=== PATIENT | female | born 1980 | race Caucasian/White ===

== ENCOUNTER → 2020-05-31 11:00 | Outpatient (CLI) | payer OTHER, SELFPAY ==
--- NOTE | ~2020-05-31 | US_ITS ---
EXAMINATION: US pelvic complete EXAM DATE: 05/31/2020 11:20 INDICATION: Thyroid uterus. TECHNIQUE: Pelvic transabdominal and transvaginal sonogram was performed. There are multiple graysca le and Doppler images available for interpretation. Comparison is made to prior examination from 01/28. FINDINGS: Uterus measures 16.0 x 8.4 x 11.0 cm, with fibroids, measuring up to 8 cm in size. Endomet rial stripe measures 9 mm, within normal limits. There is no free pelvic fluid. Right adnexa: The ovary is not identified. There is no adnexal mass. Left adnexa: The ovary measures 3.0 x 2.0 x 3.3 cm and is morphologically normal. Ovarian vascular fl ow confirmed. IMPRESSION: 1. Large fibroids, unchanged. Reviewed, dictated and finalized at location A. [facility]
== END ==
PROVIDERS: PCP Internal Medicine; Visit Provider Nurse Practitioner
DX: D25.9 Leiomyoma of uterus, unspecified (principal)
CPT/HCPCS: 76856

== ENCOUNTER 2021-09-26 10:03 | Outpatient (CLI) | payer OTHER, SELFPAY ==
[2021-09-26 11:20] LABS: Hematocrit 34.5 % (37.0-47.0); Hemoglobin 10.9 g/dL (12.0-15.0)
== END 2021-09-26 10:04 | disposition home or self-care (01) ==
LOC: ANHSURGERY 10:07
PROVIDERS: PCP Internal Medicine; Visit Provider Obstetrics & Gynecology Gynecology
DX: D21.9 Benign neoplasm of connective and other soft tissue, unspecified (principal); Z01.818 Encounter for other preprocedural examination
CPT/HCPCS: 36415; 85014; 85018; 86850; 86900; 86901

== ENCOUNTER 2021-10-04 14:02 | Observation (INO) | payer OTHER, SELFPAY ==
--- NOTE | 2021-07-26 15:38 | PC.NURSE ---
PT STATES MEMBERS OF IMMEDIATE HOUSEHOLD CURRENTLY ARE COVD +. PT ADVISED TO CALL SURGEON'S OFFICE TO RESCHEDULE PROCEDURE.
[2021-09-22 11:11] VITALS: BMI 36.0
--- NOTE | 2021-09-22 11:23 | PC.NURSE ---
Report to the Outpatient Waiting Room, entrance under the green pavilion located off [facility], at time 6:00 on date 10/03/21. OR Time: 7:30. - You and your visitor will be asked a series of questions to screen for COVID 19 for your protection. - A mask is required within the hospital. One visitor will be allowed to accompany the patient into the hospital. Patients visitor will be instructed to remain with patient at all times or leave the building. We will allow the visitor to come back to the postoperative area when patient is ready. Preoperative COVID Testing Requirements: No COVID Test needed if: (proof is required; if not received patient will have Rapid Test prior to entry) - Patient has received COVID Vaccine at least 14 days prior to procedure date or - Patient has positive COVID test result within last 90 days of surgery date. COVID Test needed if above criteria is not met Patients may have clear liquids (water, carbonated beverages, clear teas, apple juice) until 3 hours prior to surgery (4:30) with a maximum of 20 ounces. - No food from midnight until time of surgery Take the following medications with a SIP of water the morning of surgery: CLONAZEPAM (IF NEEDED) Medications to discontinue per physician: VITAMINS/SUPPLEMENTS Date to take last dose: 09/29/21 Please no make-up, nail occitan, hairspray, perfume, deodorant, or body powder the day of surgery. No jewelry (including any body piercings) or valuables the day of surgery, leave them at home. Please take a shower or bath the night before, or the morning of, surgery with an antibacterial soap. Wear comfortable, loose fitting clothing. - Jewelry must be removed prior to entering the operating room. Rings and piercings that are not removed may be cut off. - The hospital will not accept responsibility for valuables. - Please leave all valuables, including medications, at home the day of surgery. If you are going home after surgery, a licensed jinriksha driver must drive you home. - NO public transportation without another adult. - We recommend that an adult stay with you for 24 hours following discharge. - We also recommend that you do not drive, make important decision, drink alcoholic beverages, or take any drugs that were not prescribed by your health care provider for at least 24 hours after your discharge time. Follow any additional instructions given to you from your surgeon. Telephone instructions given to DEMETRI RODRIGUEZ and asked if any additional questions and then verbalized understanding. Patient advised to call surgeon office or pre surgery nurse liaison [phone] if any additional questions.
--- NOTE | 2021-10-01 12:59 | P.PNAN_ITS ---
Anes - Initial Pre Proc Eval Procedure: Operation Date: 10/03/21 07:30 Proposed Procedures p Total Abdominal Hysterectomy with Bilateral Salpingectomy - Ermelinda Staton MD Date/Time: 10/01/21 12:59 Surgeon: Ermelinda Staton MD Pre Op Diagnosis: fibroids, menorrhagia, enlarged uterus Patient Data Age: 41 Gender: F Height: 1.57 m Weight: 89.36 kg Allergies Allergy/AdvReac Type Severity Reaction Status Date / Time No Known Allergies Allergy Verified 09/22/21 11:08 Home Medications Medication Instructions Recorded Confirmed Type cholecalciferol (vitamin D3) 50 mcg PO HS 09/22/21 09/22/21 History [Vitamin D3] clonazepam 0.5 mg PO DAILY PRN 09/22/21 09/22/21 History fluoxetine 80 mg PO HS 09/22/21 09/22/21 History Patient hx anesthesia problems: none Family hx anesthesia problems: none Results Review: All pre-operative results and documents have been reviewed as part of the pre-operative evaluation. [facility] Past Medical History Medical History (Updated 10/01/21 @ 13:00 by Jerrell Sahni DO) Anxiety Asthma Depression Fibroid OCD (obsessive compulsive disorder) Social History Social History Smoking packs per day: 1 Smoking cigarettes per day: 20.0 Years smoked: 5 Smoking pack-years: 5.00 Smoking status: Former smoker Tobacco type: cigarettes Smoking end date: 07/16/01 Alcohol intake: current Alcohol use details: A COUPLE/YEAR Substance use: never Substance use type: does not use Living arrangements: with family Spiritual care concerns: No Anes - Eval Final PreProcedure Day of Procedure 10/01/21 12:59 Patient weight: obese Heart: regular rate and rhythm Lungs: clear to auscultation and normal air movement Airway: Mallampati scale class III Neurological: alert and oriented Last oral intake: >/= 8 hours ASA classification: II Emergent: no Anesthetic plan: proceed Anesthesia type and monitoring: general ETT and standard monitoring Results Review: All pre-operative results and documents have been reviewed as part of the pre-operative evaluation. Informed Consent: The patient's anesthetic plan and its attendant risks and benefits were discussed with the patient/family/POA. Questions were solicited and answers provided to the satisfaction of the patient/family/POA.
[2021-10-03] VITALS (17 sets, daily range): BP systolic 98–129; BP diastolic 63–80; PULSE 88–96; RESP 10–20; TEMP 36.2–36.5; O2SAT 97–100
[2021-10-03] MEDS: ACETAMINOPHEN 500 MG TABLET 1000 MG PO (06:45)
[2021-10-03] MEDS: LACTATED RINGERS 1,000 ML 30 ML IV CONT ×2 (06:54→09:32)
[2021-10-03] MEDS: KETOROLAC 15 MG/ML VIAL (*BKC) IV PUSH (06:55)
--- NOTE | 2021-10-03 07:20 | WPDHPUPDATE1 ---
History and Physical Update Update Date/Time: 10/03/21 07:20 History and Physical has been reviewed, including an updated exam of the patient. There are NO changes in the patient's condition. Risks, benefits, and alternatives have been discussed and questions answered. Patient agrees to proceed with procedure.
--- NOTE | 2021-10-03 07:20 | PM.IMHP ---
H&P: HPI History of Present Illness Date/Time: 10/03/21 07:20 The patient is a 41-year-old 2 para 2 being admitted for menorrhagia with enlarged fibroid uterus. Patient had a normal hysteroscopy in 2019 and has been treated with oral contraceptives and Myfembree without success. She continues to feel bloated and continues to have heavy cycles. Patient has elected to proceed with definitive therapy with hysterectomy. Due to the enlarged size of the uterus the plan is to proceed with total abdominal hysterectomy bilateral salpingectomy. Risks of surgery including infection, bleeding, injury to internal organs (bowel, bladder, ureters, ovaries), general anesthesia, and DVT were reviewed. Patient voiced understanding and agrees to proceed. Chief Complaint: Menorrhagia Review of Systems Review of Systems: All systems reviewed & are unremarkable except as noted in HPI and below (History of present illness) [facility] Past Medical History Medical History (Updated 10/03/21 @ 07:26 by Ermelinda Staton MD) Anxiety Asthma Depression Fibroid (normal spontaneous vaginal delivery) X2 OCD (obsessive compulsive disorder) Surgical History Surgical History (Updated 10/03/21 @ 07:25 by Ermelinda Staton MD) H/O LEEP History of mandibular surgery Social History Social History Smoking packs per day: 1 Smoking cigarettes per day: 20.0 Years smoked: 5 Smoking pack-years: 5.00 Smoking status: Former smoker Tobacco type: cigarettes Smoking end date: 07/16/01 Alcohol intake: current Alcohol use details: A COUPLE/YEAR Substance use: never Substance use type: does not use Living arrangements: with family Spiritual care concerns: No Meds Home Medications and Allergies Home Medications Medication Instructions Recorded Confirmed Type cholecalciferol (vitamin D3) 50 mcg PO HS 09/22/21 10/03/21 History [Vitamin D3] clonazepam 0.5 mg PO DAILY PRN 09/22/21 10/03/21 History fluoxetine 80 mg PO HS 09/22/21 10/03/21 History Allergies Allergy/AdvReac Type Severity Reaction Status Date / Time No Known Allergies Allergy Verified 10/03/21 06:39 Vital Signs Vital Signs - 24 hr 10/03/21 06:17 Temperature 97.1 F L Pulse Rate 89 Respiratory Rate 16 Blood Pressure 129/80 Pulse Oximetry 100 Exam Const: General: healthy appearing and alert Orientation/consciousness: patient oriented x3 Resp: Effort & Inspection: normal respiratory effort Auscultation: clear to auscultation bilaterally Cardio: Rate: regular rate Rhythm: regular rhythm GI: GI Palp: Yes Soft to palpation, No Tenderness to palpation present (GI) and No Palpable mass present : External Female Exam: normal external appearance Speculum Exam - Vagina: normal appearance of the vagina and normal vaginal discharge Speculum Exam - Cervix: normal appearance of the cervix Bimanual exam- vagina & uterus: consistency normal and enlarged (Eighteen week size) Bimanual Exam- Adnexa, other: normal adnexae and No adnexal tenderness Neuro: General: patient oriented x3 Assessment and Plan Assessment and plan (1) Menorrhagia: Code(s): N92.0 - Excessive and frequent menstruation with regular cycle Status: Acute Assessment and Plan: Plan is to proceed with total abdominal hysterectomy bilateral salpingectomy (2) Fibroid: Code(s): D21.9 - Benign neoplasm of connective and other soft tissue, unspecified Status: Inactive
[2021-10-03] MEDS: ceFAZolin 2 GM/D5W 50 ML 2 GM/50 ML BAG IVPB (07:30)
--- NOTE | 2021-10-03 09:23 | W.PM.PROC2 ---
Procedure Note - Detailed Date of Procedure 10/03/21 Pre-op Diagnosis fibroids, menorrhagia Post-op Diagnosis Same Procedure Performed Total abdominal hysterectomy right salpingectomy partial left salpingectomy Surgeon Ermelinda Staton MD Anesthesia General Findings Enlarged uterus with fibroids to the umbilicus, normal-appearing ovaries, the left tube is adherent to the pelvic sidewall, right tube appears normal Description of Procedure The patient was taken to the operating room and placed under anesthesia in the dorsal supine position. She was prepped and draped in the usual sterile fashion. Abdominal exam was performed the fundus is noted at umbilicus and noted to be quite wide. Decision was made for a vertical skin incision which was made with a scalpel. The incision was carried down to the fascia which was nicked and extended superiorly and inferiorly with Murrell scissors. Bleeding vessels in the subcutaneous tissue are cauterized with Bovie. The fascial edges were grasped with Ochsner was and peritoneum is dissected off laterally. The peritoneum was then tented and entered with Metzenbaum scissors. The incision was extended with blunt traction. The pelvis is inspected with the above-stated findings. The bowel was packed away using moist laparotomy sponges and the bowel for is placed. The fundus is grasped at the cornua with large Peons. the round ligaments are doubly ligated with 0 Vicryl. The ligaments were then transected and the anterior leaf of the broad ligament incised meeting in the midline over the bladder flap. Bladder flap was dissected off using blunt dissection with a moist sponge stick. The utero-ovarian ligaments are isolated and a window created in the posterior leaf of the broad ligament. The left side is doubly clamped transected and suture ligated with 0 Vicryl. The tube was scarred down and not able to be pulled into the pedicle. The right side tube is grasped with [place] and pulled towards the uterus. The utero-ovarian ligament is then doubly clamped, transected, and suture ligated with 0 Vicryl. The uterine vessels are doubly clamped, transected, and suture ligated with 0 Vicryl. The cardinal and uterosacral ligaments are then serially clamped, transected, and suture ligated with 0 Vicryl. The uterosacral ligaments were tagged for future use. The vaginal cuff was entered on the right. The Allis clamps are used to grasp the anterior and posterior cuff. The specimen was amputated using Oliver scissors. The cuff is grasped with Allis clamps as the specimen was amputated. The vaginal cuff was then closed using 0 Vicryl in a running locked fashion tying the angles to the ipsilateral uterosacral ligaments. The posterior peritoneum is noted to be bleeding and is additionally ran with 0 Vicryl in a running lock stitch. Additional [id number] suture is required under the bladder flap at the cuff. The pelvis is irrigated and noted to be hemostatic. The left tube was grasped with a [place] and noted to be very adherent to large vessels and the pelvic sidewall. The distal 3rd is grasped and crossclamped with a minimally curved Z-clamp. The fimbriated end is excised and the pedicle tied off using 0 Vicryl. Good hemostasis is noted. The pelvis was again irrigated and pedicles are noted to be dry and the cuff was noted to be dry. Instruments and sponges were then removed. The fascia was closed using 0 PDS in a running fashion. Subcutaneous tissues are irrigated noted to be hemostatic. Skin is closed using absorbable mary with glue placed over the incision. Sponge, needle, and instrument counts are correct per the OR staff. Estimated Blood Loss 525 Drains Yes (Hess catheter) Packing No Pathology Yes (Uterus, right tube, partial left tube) Complications No immediate complications Condition Stable Disposition PACU
--- NOTE | 2021-10-03 09:31 | PM.DS ---
DS: Admitting Diagnosis Discharge Date 10/05/21 Admitting Diagnosis Fibroids with menorrhagia DS: Discharge Diagnosis Discharge Diagnosis (1) Menorrhagia: Code(s): N92.0 - Excessive and frequent menstruation with regular cycle Status: Acute (2) Fibroid: Code(s): D21.9 - Benign neoplasm of connective and other soft tissue, unspecified Status: Acute DS: Summary Hospital Course Reason for hospitalization: Postoperative care Hospital Course: At the time of discharge, the patient is tolerating a regular diet, voiding, and ambulating without difficulty. Status at Discharge Functional status at discharge: independent ambulation Overall status at discharge: patient is progressing back to baseline Time Spent with Patient Time attestation: Total time spent providing and/or coordinating discharge services: DS: Data Data Completed and Pending Pending studies at discharge: Pending at discharge 10/03/21 08:43 Surgical [PTH] Routine Discharge Plan Discharge Attending physician on discharge: Ermelinda Staton Discharging Clinician: Ermelinda Staton Anticipated Discharge Date/Time: 10/05/21 14:50 Patient Disposition: Home, Self-Care Activity: may shower, may drive after 2 weeks and pelvic rest Diet: regular Wound Care Instructions: incision open to air Stand Alone Forms: General Discharge Instructions Follow-up/Referrals: Ermelinda Staton MD [Physician] - 1 Week Discharge Medications: New hydrocodone-acetaminophen 5-325 mg Tablet 1 tablet PO Q3H PRN (Reason: Pain Rated 5 Or Less) Qty: 30 RF: 0 Continued fluoxetine 40 mg Capsule 80 mg PO HS RF: 0 clonazepam 0.5 mg Tablet 0.5 mg PO DAILY PRN (Reason: Anxiety) RF: 0 cholecalciferol (vitamin D3) [Vitamin D3] 50 mcg (2,000 unit) Capsule 50 mcg PO HS RF: 0 Date of admission: 10/04/21 14:02 Primary Care Provider: SalimaMarquez Admitting Provider: Ermelinda Staton Attending physician on admission: Ermelinda Staton Condition: Stable
--- NOTE | 2021-10-03 09:32 | SUR.OPER ---
EBL: 525cc, URINE:300cc
[2021-10-03] MEDS: fentaNYL CITRATE INJ (*CRX) 100 MCG/2 ML VIAL 25 MCG IV PUSH ×6 (09:40→09:59)
[2021-10-03] MEDS: HYDROmorphone HCL INJ (*CRX) 1 MG/ML SYR 0.5 MG IV PUSH ×2 (10:26→10:32)
[2021-10-03] MEDS: DEXTROSE 5%/LACTATED RINGERS 1,000 ML 125 ML IV CONT ×2 (11:12→18:57)
[2021-10-03] MEDS: FENTANYL 600MCG/NS30MLPCA(*CRX 600 MCG/30 ML PCA.VIAL IV CONT (11:50)
--- NOTE | 2021-10-03 12:12 | PC.NURSE ---
1050-This patient, Cristiana Cotter, was admitted to OB 2nd Floor Room 289-00. Patient/family oriented to hospital policies and general routines including ID bracelet, bed and alarms, visiting hours, pain management, procedures, bathroom and other care routines, personal items, smoking policy, room service/diet, and visiting hours. Information on how to activate the Rapid Response Team has been discussed. Patient/Family are encouraged to report perceived risks to care and to ask questions if they do not understand what they are told or what they should do.
[2021-10-03] MEDS: KETOROLAC 30 MG/ML VIAL (*BKC) IV PUSH ×2 (13:24→19:06)
--- NOTE | 2021-10-03 17:49 | PC.NURSE ---
BRIQUETTER OPERATOR pump cleared this shift; total amount used was 70 mcg.
[2021-10-03] MEDS: FLUoxetine HCL 20 MG CAPSULE 80 MG PO (22:06)
[2021-10-04 01:00] VITALS: RESP 18; O2SAT 99
[2021-10-04 03:00] VITALS: RESP 18; O2SAT 97
[2021-10-04] MEDS: KETOROLAC 30 MG/ML VIAL (*BKC) IV PUSH (03:08)
[2021-10-04] MEDS: HYDROcodone/acetaminophen (*CRX) 10-325 MG TABLET 1 TAB PO ×5 (03:15→21:35)
[2021-10-04 03:30] VITALS: BP 122/84; PULSE 91; RESP 18; TEMP 36.8; O2SAT 97
[2021-10-04 05:26] LABS: Basophils Percent Auto 0.2 % (0.2-1.2); Eosinophils Absolute Auto 0.1 K/mm3 (0-0.3); Eosinophils Percent Auto 0.6 % (0-4.4); Hemoglobin 8.7 g/dL (12.0-15.0); Immature Granulocyte Absolute 0.03 K/mm3 (0.00-0.031); Immature Granulocyte Percent A 0.3 % (0-0.5); Lymphocytes Absolute Auto 1.52 K/mm3 (0.9-3.2); Lymphocytes Percent Auto 16.1 % (18.3-44.2); Mean Corpuscular HGB Conc 32.2 g/dl (32-36); Mean Corpuscular Hemoglobin 25.8 pg (26-34); Mean Corpuscular Volume 80.1 fl (80-100); Mean Platelet Volume 9.9 fl (7.4-10.4); Monocytes Absolute Auto 0.8 K/mm3 (0.1-0.6); Monocytes Percent Auto 8.1 % (2.6-8.5); Neutrophils Absolute Auto 7.1 K/mm3 (1.3-6.7); Neutrophils Percent Auto 74.7 % (45.5-73.1); Platelet Count Result 233 k/mm3 (150-375); Red Blood Count 3.37 M/mm3 (4.2-5.4); Red Cell Distribution Width 14.7 % (11.5-14.5); White Blood Count 9.4 K/mm3 (4.5-10.0)
[2021-10-04 07:30] VITALS: BP 112/67; PULSE 86; RESP 16; TEMP 36.9; O2SAT 97
[2021-10-04] MEDS: SIMETHICONE 80 MG TAB.CHEW PO ×4 (07:42→21:36)
[2021-10-04] MEDS: IBUPROFEN 600 MG TABLET PO ×2 (12:11→21:36)
--- NOTE | 2021-10-04 14:48 | PM.GYNPNOP ---
SERVICE CAPTAIN - A/P Postoperative Procedures: Procedures Operation Date: 10/03/21 07:30 Actual Procedure Side Surgeon p Total Abdominal Hysterectomy with right salpingectomy and partial left salpingectomy Bilateral Ermelinda Staton MD Postoperative day: 1 Postoperative status: doing well Postoperative plan: routine post-op care Time Spent With Patient Time: Total time spent is greater than 50% in coordination of care (as documented) at patient's floor/unit and/or counseling patient: Time with patient: less than 15 minutes SERVICE CAPTAIN- PN:Subj Post-Op Subjective Date/time seen: 10/04/21 14:48 Subjective: patient reports feeling better, pain is well controlled and patient is tolerating oral intake Exam Narrative: inc c/d/i bruising noted SERVICE CAPTAIN - PN: Obj Data Vital Signs Vital Signs: Vital Signs - 24 hr 10/03/21 14:50 10/03/21 16:00 10/03/21 16:50 Temperature 97.4 F L Pulse Rate 90 Respiratory Rate 16 16 16 Blood Pressure 112/80 Pulse Oximetry 99 99 99 10/03/21 19:00 10/03/21 19:48 10/03/21 21:00 Temperature 97.4 F L Pulse Rate 96 Respiratory Rate 18 20 18 Blood Pressure 114/72 Pulse Oximetry 100 99 100 10/03/21 23:00 10/04/21 01:00 10/04/21 03:00 Temperature 97.7 F Pulse Rate 95 Respiratory Rate 18 18 18 Blood Pressure 120/78 Pulse Oximetry 99 99 97 10/04/21 03:30 10/04/21 07:30 Temperature 98.3 F 98.5 F Pulse Rate 91 86 Respiratory Rate 18 16 Blood Pressure 122/84 112/67 Pulse Oximetry 97 97 Intake/Output Intake/Output: Intake & Output 10/01/21 10/02/21 10/03/21 10/04/21 23:59 23:59 23:59 23:59 Intake Total 2555.5 1100 Output Total 1250 2250 Balance 1305.5 -1150 Meds/Results Medications: Active Medications Generic Name Dose Route Start Last Admin Trade Name Freq PRN Reason Stop Dose Admin Hydrocodone Bitart/Acetaminophen 1 tab 10/03/21 10:44 10/04/21 12:11 Hydrocodone/Acetaminophen (*Crx) 10-325 Mg Tablet PO 1 tab Q3H PRN Administration Pain Rated 6 or Greater Hydrocodone Bitart/Acetaminophen 1 tab 10/03/21 10:44 Hydrocodone/Acetaminophen (*Crx) 5-325 Mg Tablet PO Q3H PRN Pain Rated 5 or Less Clonazepam 0.5 mg 10/03/21 10:44 Clonazepam (*Crx) 0.5 Mg Tablet PO DAILY PRN Anxiety Fluoxetine HCl 80 mg 10/03/21 21:00 10/03/21 22:06 Fluoxetine Hcl 20 Mg Capsule PO 80 mg HS VALDEZ Administration Ibuprofen 600 mg 10/03/21 10:44 10/04/21 12:11 Ibuprofen 600 Mg Tablet PO 600 mg Q6H PRN Administration Cramping Ketorolac Tromethamine 30 mg 10/03/21 10:44 10/04/21 03:08 Ketorolac 30 Mg/Ml Vial (*Bkc) IV PUSH 10/08/21 10:43 30 mg Q6H PRN Administration Pain Rated 4-6 Naloxone HCl 0.1 mg 10/03/21 10:44 Naloxone Hcl 0.4 Mg/Ml Vial IV PUSH Q2M PRN Respiratory rate less than 10 Ondansetron HCl 4 mg 10/03/21 10:44 Ondansetron Inj 4 Mg/2 Ml Vial IV PUSH Q6H PRN Nausea Simethicone 80 mg 10/03/21 10:44 10/04/21 12:11 Simethicone 80 Mg Tab.Chew PO 80 mg Q2H PRN Administration Gas Labs CBC & Chem 7: 10/04/21 05:18 Labs: Laboratory Results - last 24 hr 10/04/21 05:18 WBC 9.4 RBC 3.37 L Hgb 8.7 L Hct 27.0 L MCV 80.1 MCH 25.8 L MCHC 32.2 RDW 14.7 H Plt Count 233 MPV 9.9 Immature Gran % (Auto) 0.3 Neut % (Auto) 74.7 H Lymph % (Auto) 16.1 L Elk % (Auto) 8.1 Eos % (Auto) 0.6 Baso % (Auto) 0.2 Lymph # (Auto) 1.52 Elk # (Auto) 0.8 H Eos # (Auto) 0.1 Baso # (Auto) 0.0 Abs Immat Gran (auto) 0.03 Absolute Neuts (auto) 7.1 H Absolute Nucleated RBC 0.0 Nucleated RBC % 0.0
[2021-10-04 20:00] VITALS: BP 97/58; PULSE 88; RESP 18; TEMP 36.2; O2SAT 99
[2021-10-04] MEDS: FLUoxetine HCL 20 MG CAPSULE 80 MG PO (21:35)
[2021-10-05] MEDS: SIMETHICONE 80 MG TAB.CHEW PO ×2 (04:30→07:49)
[2021-10-05] MEDS: HYDROcodone/acetaminophen (*CRX) 10-325 MG TABLET 1 TAB PO ×2 (04:30→07:49)
[2021-10-05] MEDS: IBUPROFEN 600 MG TABLET PO (04:31)
--- NOTE | 2021-10-05 06:35 | P.PNOB_ITS ---
ACCOUNT EXECUTIVE TRAINEE - A/P Postoperative Procedures: Procedures Operation Date: 10/03/21 07:30 Actual Procedure Side Surgeon p Total Abdominal Hysterectomy with right salpingectomy and partial left salpingectomy Bilateral Ermelinda Staton MD Postoperative day: 2 Postoperative status: doing well Postoperative plan: routine post-op care and discharge Time Spent With Patient Time: Total time spent is greater than 50% in coordination of care (as documented) at patient's floor/unit and/or counseling patient: Time with patient: less than 15 minutes ACCOUNT EXECUTIVE TRAINEE- PN:Subj Post-Op Subjective Date/time seen: 10/05/21 06:35 Subjective: patient reports feeling better, patient has no complaints and pain is well controlled Exam Narrative: inc c/d/i abdomen soft, nt ACCOUNT EXECUTIVE TRAINEE - PN: Obj Data Vital Signs Vital Signs: Vital Signs - 24 hr 10/04/21 07:30 10/04/21 20:00 Temperature 98.5 F 97.1 F L Pulse Rate 86 88 Respiratory Rate 16 18 Blood Pressure 112/67 97/58 L Pulse Oximetry 97 99 Intake/Output Intake/Output: Intake & Output 10/02/21 10/03/21 10/04/21 10/05/21 23:59 23:59 23:59 23:59 Intake Total 2555.5 1100 Output Total 1250 2250 Balance 1305.5 -1150 Meds/Results Medications: Active Medications Generic Name Dose Route Start Last Admin Trade Name Freq PRN Reason Stop Dose Admin Hydrocodone Bitart/Acetaminophen 1 tab 10/03/21 10:44 10/05/21 04:30 Hydrocodone/Acetaminophen (*Crx) 10-325 Mg Tablet PO 1 tab Q3H PRN Administration Pain Rated 6 or Greater Hydrocodone Bitart/Acetaminophen 1 tab 10/03/21 10:44 Hydrocodone/Acetaminophen (*Crx) 5-325 Mg Tablet PO Q3H PRN Pain Rated 5 or Less Clonazepam 0.5 mg 10/03/21 10:44 Clonazepam (*Crx) 0.5 Mg Tablet PO DAILY PRN Anxiety Fluoxetine HCl 80 mg 10/03/21 21:00 10/04/21 21:35 Fluoxetine Hcl 20 Mg Capsule PO 80 mg HS VALDEZ Administration Ibuprofen 600 mg 10/03/21 10:44 10/05/21 04:31 Ibuprofen 600 Mg Tablet PO 600 mg Q6H PRN Administration Cramping Ketorolac Tromethamine 30 mg 10/03/21 10:44 10/04/21 03:08 Ketorolac 30 Mg/Ml Vial (*Bkc) IV PUSH 10/08/21 10:43 30 mg Q6H PRN Administration Pain Rated 4-6 Naloxone HCl 0.1 mg 10/03/21 10:44 Naloxone Hcl 0.4 Mg/Ml Vial IV PUSH Q2M PRN Respiratory rate less than 10 Ondansetron HCl 4 mg 10/03/21 10:44 Ondansetron Inj 4 Mg/2 Ml Vial IV PUSH Q6H PRN Nausea Simethicone 80 mg 10/03/21 10:44 10/05/21 04:30 Simethicone 80 Mg Tab.Chew PO 80 mg Q2H PRN Administration Gas Labs CBC & Chem 7: 10/04/21 05:18
--- NOTE | 2021-10-05 07:30 | PC.NURSE ---
PT introductions made and plan of care discussed per post op segmental paving supervisor surgery, pain management, daily care activities and pending discharge to home. PT and spouse both recipients of such instructions. Instructions this shift via one to one discussion, and demonstrations. no barriers to learning identified at this time. PT verbalized understanding. PT wearing abdominal binder and has ice pack for usage at home.
[2021-10-05 07:40] VITALS: BP 118/70; PULSE 85; RESP 18; TEMP 36.3; O2SAT 97
[2021-10-05 07:49] VITALS: PULSE 85; RESP 18; O2SAT 97
--- NOTE | 2021-10-05 08:00 | PC.NURSE ---
PT received discharge instructions per protocol and verbalized understanding of such care.
--- NOTE | 2021-10-05 08:10 | PC.NURSE ---
PT discharged to home via wheelchair accompanied by spouse and taken to waiting car. Follow up appts confirmed
== END 2021-10-05 08:10 | disposition home or self-care (01) ==
LOC: ANHSURGERY 14:07 → ANHOB2 14:07
PROVIDERS: Admitting Provider Obstetrics & Gynecology Gynecology; PCP Internal Medicine; Visit Provider Obstetrics & Gynecology Gynecology
PROC: 0UT94ZZ Resection of Uterus, Percutaneous Endoscopic Approach (ICD-10-PCS; CPT 58150; principal; 2021-10-03 07:30)
DX: N92.0 Excessive and frequent menstruation with regular cycle (principal); D25.1 Intramural leiomyoma of uterus; D25.0 Submucous leiomyoma of uterus; N85.2 Hypertrophy of uterus; G89.18 Other acute postprocedural pain; F41.9 Anxiety disorder, unspecified; F32.A Depression, unspecified; Z87.891 Personal history of nicotine dependence
CPT/HCPCS: 58150; 12004; 36415; 85014; 85018; 85025; 86850; 86900; 86901; 88307; 99199; 99282; A9270; G0378; J0690; J1100; J1170; J1885; J2250; J2405; J2704; J2710; J3010; J7120; J7121

== ENCOUNTER 2021-10-05 20:41 | Emergency (ER) | payer OTHER, SELFPAY ==
[2021-10-05 21:38] VITALS: BP 142/76; PULSE 107; RESP 18; TEMP 36.5; O2SAT 98
[2021-10-05 23:30] VITALS: BP 142/77; PULSE 80; RESP 16; O2SAT 100
--- NOTE | 2021-10-05 23:42 | ED.WOUNDLAC ---
HPI - Wound/Laceration General Chief Complaint: Wound/Laceration Stated Complaint: open hysterectomy wound hysterectomy done sunday Time Seen by Provider: 10/05/21 23:22 Source: patient Mode of arrival: ambulatory Limitations: no limitations History of Present Illness HPI narrative: Patient is a 41-year-old female complaining of his surgical wound opening up when she got home today. Patient was discharged today from this hospital after having a hysterectomy due to fibroids . Patient denies any abdominal pain, nausea, vomiting, fever or chills Related Data Home Medications Medication Instructions Recorded Confirmed cholecalciferol (vitamin D3) 50 mcg PO HS 09/22/21 10/03/21 [Vitamin D3] clonazepam 0.5 mg PO DAILY PRN 09/22/21 10/03/21 fluoxetine 80 mg PO HS 09/22/21 10/03/21 Allergies Allergy/AdvReac Type Severity Reaction Status Date / Time No Known Allergies Allergy Verified 10/03/21 06:39 Review of Systems Review of Systems: All systems reviewed & are unremarkable except as noted in HPI and below Constitutional: Constitutional: Denies body ache(s), Denies chills, Denies excessive sweating, Denies fatigue, Denies fever(s), Denies headache(s), Denies lethargy, Denies malaise, Denies weakness and Denies weight loss Eyes: Eyes: Denies blurry vision, Denies change in vision and Denies loss of vision ENT: Denies dizziness, Denies ear discharge, Denies headache(s), Denies lip swelling, Denies epistaxis, Denies nasal congestion, Denies neck pain, Denies throat swelling and Denies tongue swelling Cardiovascular: Cardiovascular: Denies chest pain, Denies chest pain at rest, Denies chest pain with activity, Denies diaphoresis, Denies rapid heart rate, Denies edema, Denies irregular heart rhythm, Denies lightheadedness, Denies palpitations, Denies dyspnea and Denies dyspnea on exertion Respiratory: Respiratory: Denies chest congestion, Denies cough, Denies hemoptysis, Denies dyspnea and Denies dyspnea on exertion Gastrointestinal: Gastrointestinal: Denies abdominal pain, Denies melena, Denies hematochezia, Denies diarrhea, Denies nausea, Denies vomiting and Denies hematemesis Musculoskeletal: Musculoskeletal: Denies abnormal gait, Denies deformity, Denies joint swelling, Denies limited range of motion, Denies neck pain and Denies numbness Neurologic: Denies Abnormal speech present, Denies abnormal gait, Denies confusion, Denies dizziness, Denies headache(s), Denies focal weakness, Denies loss of vision, Denies numbness, Denies Other visual disturbances, Denies Sensory deficit (Neuro) and Denies weakness Psychiatric: Psychiatric: Denies confusion, Denies depression, Denies auditory hallucinations, Denies homicidal ideation and Denies suicidal ideation Endocrine: Endocrine: Denies cold intolerance, Denies excessive sweating, Denies fatigue, Denies heat intolerance and Denies palpitations Hematologic/Lymphatic: Hematologic/Lymphatic: Denies easy bleeding and Denies easy bruising Allergic/Immunologic: Allergic/Immunologic: Denies lip swelling, Denies throat swelling and Denies tongue swelling PMFSH Past Medical History Medical History Anxiety Asthma Depression Fibroid (normal spontaneous vaginal delivery) X2 OCD (obsessive compulsive disorder) Surgical History Surgical History H/O LEEP History of mandibular surgery Social History Social History Smoking packs per day: 1 Smoking cigarettes per day: 20.0 Years smoked: 5 Smoking pack-years: 5.00 Smoking status: Former smoker Tobacco type: cigarettes Smoking end date: 07/16/01 Alcohol intake: current Alcohol use details: A COUPLE/YEAR Substance use: never Substance use type: does not use Spiritual care concerns: No Exam Const: General: cooperative, healthy appeari
[2021-10-06 01:21] VITALS: BP 132/88; PULSE 88; RESP 16; O2SAT 99
== END 2021-10-06 01:22 | disposition home or self-care (01) ==
PROVIDERS: Emergency Provider Emergency Medicine; PCP Internal Medicine
DX: T81.31XA Disruption of external operation (surgical) wound, not elsewhere classified, initial encounter (principal); Z87.891 Personal history of nicotine dependence; F41.9 Anxiety disorder, unspecified; J45.909 Unspecified asthma, uncomplicated; F32.9 Major depressive disorder, single episode, unspecified
CPT/HCPCS: 12004; 99282